=== PATIENT | female | born 1955 | race Two or more races ===

== ENCOUNTER 2021-06-14 10:02 | Outpatient (CLI) | payer MEDICARE, OTHER ==
[2021-06-14 11:53] LABS: BASOPHILS % (AUTO) 0.6 % (0.0-2.0); EOSINOPHILS % (AUTO) 0.7 % (0.0-6.0); HEMATOCRIT 37 % (33-45); HEMOGLOBIN 12.6 g/dL (11.5-14.8); LYMPHOCYTES # (AUTO) 2.4 K/uL (0.8-4.8); LYMPHOCYTES % (AUTO) 31.7 % (20.0-44.0); MEAN CORPUSCULAR HGB CONC 34 g/dl (31.0-36.0); MEAN CORPUSCULAR VOLUME 90 fL (82-100); MONOCYTES # (AUTO) 0.4 K/uL (0.1-1.30); MONOCYTES % (AUTO) 5.7 % (2.0-12.0); NEUTROPHILS # (AUTO) 4.7 K/uL (1.8-8.9); NEUTROPHILS % (AUTO) 61.3 % (43.0-81.0); PLATELET COUNT (AUTO) 302 K/uL (150-450); RED BLOOD CELL COUNT(AUTO) 4.11 MIL/uL (4.0-5.2); WHITE BLOOD COUNT (AUTO) 7.6 K/uL (4.3-11.0)
[2021-06-14 11:55] LABS: BILIRUBIN,URINE NEGATIVE (NEGATIVE); COLOR,URINE YELLOW (YELLOW); LEUKOCYTE ESTERASE ,URINE NEGATIVE (NEGATIVE); NITRITE, URINE NEGATIVE (NEGATIVE); PROTEIN,URINE NEGATIVE (NEGATIVE); UGLUCOSE NEGATIVE (NEGATIVE); UROBILINOGEN,URINE 0.2 EU/dL (0.2)
[2021-06-14 12:06] LABS: ALBUMIN 3.8 g/dL (3.4-5.0); BILIRUBIN,TOTAL 0.4 mg/dL (0.2-1.0); CALCIUM, SERUM 9.7 mg/dL (8.5-10.1); CREATININE 0.9 mg/dL (0.6-1.3); POTASSIUM 4.2 mmol/L (3.5-5.1); TOTAL PROTEIN, SERUM 7.7 g/dL (6.4-8.2)
[2021-06-14 12:23] LABS: THYROID STIMULATING HORMONE 1.605 uIU/mL (0.358-3.74)
== END 2021-06-14 23:59 | disposition home or self-care (01) ==
LOC: MSC 10:02
PROVIDERS: ATTEND Internal Medicine
DX: I10 Essential (primary) hypertension (principal); E11.9 Type 2 diabetes mellitus without complications; Z79.84 Long term (current) use of oral hypoglycemic drugs; I82.409 Acute embolism and thrombosis of unspecified deep veins of unspecified lower extremity; Z79.01 Long term (current) use of anticoagulants; E78.5 Hyperlipidemia, unspecified
CPT/HCPCS: 36415; 80053; 80061; 81003; 82043; 82570; 82728; 83540; 84439; 84443; 85025; G0463

== ENCOUNTER 2021-07-14 09:25 | Outpatient (CLI) | payer MEDICARE ==
[2021-07-14 10:13] LABS: BASOPHILS % (AUTO) 0.5 % (0.0-2.0); EOSINOPHILS % (AUTO) 0.8 % (0.0-6.0); HEMATOCRIT 39 % (33-45); HEMOGLOBIN 13.3 g/dL (11.5-14.8); LYMPHOCYTES # (AUTO) 2.5 K/uL (0.8-4.8); LYMPHOCYTES % (AUTO) 30.8 % (20.0-44.0); MEAN CORPUSCULAR HGB CONC 35 g/dl (31.0-36.0); MEAN CORPUSCULAR VOLUME 89 fL (82-100); MONOCYTES # (AUTO) 0.4 K/uL (0.1-1.30); MONOCYTES % (AUTO) 5.1 % (2.0-12.0); NEUTROPHILS # (AUTO) 5.1 K/uL (1.8-8.9); NEUTROPHILS % (AUTO) 62.8 % (43.0-81.0); PLATELET COUNT (AUTO) 321 K/uL (150-450); RED BLOOD CELL COUNT(AUTO) 4.32 MIL/uL (4.0-5.2); WHITE BLOOD COUNT (AUTO) 8.2 K/uL (4.3-11.0)
[2021-07-14 10:25] LABS: ALBUMIN 4.1 g/dL (3.4-5.0); BILIRUBIN,TOTAL 0.4 mg/dL (0.2-1.0); CALCIUM, SERUM 9.6 mg/dL (8.5-10.1); CREATININE 0.9 mg/dL (0.6-1.3); POTASSIUM 3.7 mmol/L (3.5-5.1); TOTAL PROTEIN, SERUM 8.4 g/dL (6.4-8.2)
[2021-07-14 10:38] LABS: BILIRUBIN,URINE NEGATIVE (NEGATIVE); LEUKOCYTE ESTERASE ,URINE TRACE (NEGATIVE); NITRITE, URINE NEGATIVE (NEGATIVE); PROTEIN,URINE NEGATIVE (NEGATIVE); UGLUCOSE NEGATIVE (NEGATIVE); UROBILINOGEN,URINE 0.2 EU/dL (0.2)
[2021-07-14 10:47] LABS: COLOR,URINE LIGHT YELLOW (YELLOW)
[2021-07-14 10:51] LABS: BACTERIA,URINE Rare /HPF (None Seen); RBC,URINE 0-2 /HPF (0-2); SQUAMOUS EPITHELIAL CELL,UR Rare /HPF (None Seen); WBC,URINE 0-2 /HPF (0-3)
== END 2021-07-14 23:59 | disposition home or self-care (01) ==
LOC: LAB 09:25
PROVIDERS: ATTEND Internal Medicine
DX: Z01.818 Encounter for other preprocedural examination (principal); M17.12 Unilateral primary osteoarthritis, left knee; Z20.822 Contact with and (suspected) exposure to COVID-19
CPT/HCPCS: 36415; 71045; 80053; 81001; 85025; 85610; 85730; 93005; C9803; U0003

== ENCOUNTER 2021-07-18 10:30 | Outpatient (CLI) | payer MEDICARE | END 2021-07-18 23:59 | disposition home or self-care (01) | LOC: MSC 10:30 | PROVIDERS: ATTEND Internal Medicine | DX: Z01.818 Encounter for other preprocedural examination (principal); M17.10 Unilateral primary osteoarthritis, unspecified knee; I10 Essential (primary) hypertension; E11.9 Type 2 diabetes mellitus without complications; Z79.84 Long term (current) use of oral hypoglycemic drugs; I82.409 Acute embolism and thrombosis of unspecified deep veins of unspecified lower extremity; Z79.01 Long term (current) use of anticoagulants; E78.5 Hyperlipidemia, unspecified; Z79.899 Other long term (current) drug therapy ==

== ENCOUNTER 2021-07-21 05:28 | Inpatient (IN) | payer MEDICARE, OTHER ==
[~2021-07-21] VITALS: Ht 152.4 cm; Wt 74.4 kg
--- NOTE | 2021-07-21 06:00 | NUR ---
MS RN NOTE PATIENT ARRIVED ON UNIT FOR LEFT TOTAL KNEE ARTHROPLASTY, PT ALERT/ORIENTED X 4, PT IS ETHIOPIAN SPEAKING ONLY. PT STABLE ON RA, NO S/S OF DISTRESS OR SOB NOTED, BREATHING EVEN AND UNLABORED. PATIENT STATES SHE IS FEELING VERY ANXIOUS, BP: 210/110, HR: 92, SPO2: 98%. PATIENT STATES SHE WAS TOLD TO TAKE LOSARTAN 50 MG PO MEDICATION THIS MORNING, OTHER THAN THAT HAS BEEN NPO SINCE 10 PM LAST NIGHT. MRSA SWAB DONE. IV PLACED IN LEFT AC #20G. PATIENT BELONGINGS CHARTED AND LEFT IN ROOM. PER PATIENT, DAUGHTER AND NIECE WILL BE IN WAITING ROOM. CONSENTS SIGNED AND SURGICAL CHECKLIST COMPLETED. WILL CONTINUE TO MONITOR PATIENT
--- NOTE | 2021-07-21 06:00 | NUR ---
MS RN NOTE PATIENT ARRIVED ON UNIT FOR LEFT TOTAL KNEE ARTHROPLASTY, PT ALERT/ORIENTED X 4, PT IS NIGERIEN SPEAKING ONLY. PT STABLE ON RA, NO S/S OF DISTRESS OR SOB NOTED, BREATHING EVEN AND UNLABORED. PATIENT STATES SHE IS FEELING VERY ANXIOUS, BP: 210/110, HR: 92, SPO2: 98%. PATIENT STATES SHE WAS TOLD TO TAKE LOSARTAN 50 MG PO MEDICATION THIS MORNING, OTHER THAN THAT HAS BEEN NPO SINCE 10 PM LAST NIGHT. MRSA SWAB DONE. IV PLACED IN LEFT AC #20G. PATIENT BELONGINGS CHARTED AND LEFT IN ROOM. PER PATIENT, DAUGHTER AND NIECE WILL BE IN WAITING ROOM. CONSENTS SIGNED AND SURGICAL CHECKLIST COMPLETED. WILL CONTINUE TO MONITOR PATIENT
--- NOTE | 2021-07-21 06:40 | NUR ---
MS RN NOTE PATIENT TAKEN DOWN BY OR NURSES IN STABLE CONDITION
--- NOTE | 2021-07-21 06:40 | NUR ---
MS RN NOTE PATIENT TAKEN DOWN BY OR NURSES IN STABLE CONDITION
[2021-07-21] MEDS ORDERED: FENTANYL PF 100MCG/2ML AMPUL ONE (06:41)
[2021-07-21] MEDS ORDERED: ROCURONIUM BROMIDE 50 MG/5 ML ONE (06:41)
[2021-07-21] MEDS ORDERED: HYDROMORPHONE INJ 2 MG/ML DISP.SYRIN ONE ×2 (06:41→09:14)
[2021-07-21] MEDS ORDERED: TRANEXAMIC ACID 3,000 MG in SODIUM CHLORIDE IRRIG SOLUTION 70 ML IR ONE (07:30)
[2021-07-21] MEDS ORDERED: LABETALOL HCL IV 100MG VIAL ONE (08:05)
[2021-07-21] MEDS ORDERED: BUPIVACAINE 0.5 % PF 150 MG/30 ML VIAL ONE (08:36)
[2021-07-21] MEDS ORDERED: SENNOSIDES 8.6 MG TABLET PO PRN (10:00)
[2021-07-21] MEDS ORDERED: BISACODYL SUPP (10 MG) 10 MG/SUPP.RECT SUPP.RECT RC PRN ×2 (10:00→11:00)
[2021-07-21] MEDS ORDERED: DOCUSATE SODIUM 250 MG CAPSULE PO PRN (10:00)
[2021-07-21] MEDS ORDERED: ONDANSETRON HCL/PF 4 MG/2 ML VIAL IVP PRN ×2 (10:00→12:30)
[2021-07-21] MEDS ORDERED: ZOLPIDEM TARTRATE 5 MG TABLET PO PRN ×2 (10:00→12:30)
[2021-07-21] MEDS ORDERED: HYDROCODONE/APAP 5/325MG TABLET PO PRN (10:00)
[2021-07-21 10:40] VITALS: BP 115/65
[2021-07-21] MEDS ORDERED: diphenhydrAMINE HCL 25 MG CAPSULE PO PRN (11:00)
[2021-07-21] MEDS ORDERED: oxyCODONE IR immediate release 5 MG PO PRN (11:00)
[2021-07-21] MEDS ORDERED: MENTHOL/CETYLPYRD (CEPACOL) 1 LOZ LOZENGE MM PRN (11:00)
[2021-07-21] MEDS ORDERED: CLONIDINE HCL 0.1 MG TABLET PO PRN (11:00)
[2021-07-21] MEDS ORDERED: MAG HYDROX/AL HYDROX/SIMETH 30 ML UDC PO PRN ×2 (11:00→12:30)
[2021-07-21] MEDS ORDERED: HYDROMORPHONE 1 MG/1 ML DISP.SYRIN IV PRN (11:00)
[2021-07-21] MEDS ORDERED: NALOXONE HCL 0.4 MG/ML AMPUL IV PRN (11:00)
--- NOTE | 2021-07-21 11:30 | NUR ---
HOSPICE PLAN ADMINISTRATOR NOTE PT IN BED RESTING COMFORTABLY. SATS IN LOW 90'S, 2L NC PLACED. SATS BACK >95%. IRAQI ONLY. A/O X4. ON BEDREST. L LEG TO BE IMMOBILIZED. L KNEE INCISION PRESENT, WOUND TX TO BE DONE BY MD. LABS AND ORDERS REVIEWED. NOTIFIED GUY ROUSSEAU OF ADMISSION. NEW ORDERS PLACED. WILL CONTINUE TO MONITOR.
--- NOTE | 2021-07-21 11:30 | NUR ---
PROFILE SAW SETUP OPERATOR NOTE PT IN BED RESTING COMFORTABLY. SATS IN LOW 90'S, 2L NC PLACED. SATS BACK >95%. CZECH ONLY. A/O X4. ON BEDREST. L LEG TO BE IMMOBILIZED. L KNEE INCISION PRESENT, WOUND TX TO BE DONE BY MD. LABS AND ORDERS REVIEWED. NOTIFIED GUY ROUSSEAU OF ADMISSION. NEW ORDERS PLACED. WILL CONTINUE TO MONITOR.
[2021-07-21] MEDS ORDERED: DEXTROSE 50%-WATER 50 ML DISP.SYRIN IV PRN ×2 (12:30→14:00)
[2021-07-21] MEDS ORDERED: Z GUARD REMEDY 4 OZ OINT TP PRN (12:30)
[2021-07-21] MEDS ORDERED: MAGNESIUM HYDROXIDE 30 ML UDC PO PRN (12:30)
[2021-07-21] MEDS ORDERED: ACETAMINOPHEN 325 MG TABLET PO PRN (12:30)
[2021-07-21] MEDS ORDERED: BLOOD SUGAR DIAGNOSTIC 1 EACH STRIP IN SCH (13:00)
[2021-07-21 16:00] VITALS: BP 156/81
[2021-07-21] MEDS: ANCEF 1 GM/50 ML D5W IV SCH ×2 (17:28→22:22)
[2021-07-21] MEDS: BLOOD SUGAR DIAGNOSTIC 1 EACH STRIP IN SCH ×2 (17:28→21:15)
[2021-07-21] MEDS: DOCUSATE SODIUM 100 MG CAPSULE PO SCH (17:28)
[2021-07-21] MEDS: INSULIN REGULAR, HUMAN 100 UNIT/ML 3 ML VIAL SQ PRN ×2 (17:29→22:19)
--- NOTE | 2021-07-21 19:43 | NUR ---
RN CLOSING NOTE PT IN BED COMFORTABLY. NO DISTRESS NOTED. NO PAIN NOTED. SAFETY MEASURES IN PLACE. SIDE RAILS RAISED. BED LOWERED. CALL LIGHT WITHIN REACH. WILL CONTINUE TO MONITOR.
[2021-07-21 20:38] VITALS: BP 160/77
[2021-07-21] MEDS: FAMOTIDINE (20 MG) 20 MG TABLET PO SCH (21:15)
[2021-07-22] MEDS: IV D5/0.45 NACL 1,000 ML IV PRN ×2 (05:43→22:45)
[2021-07-22] MEDS: oxyCODONE IR immediate release 5 MG PO PRN ×2 (06:05→21:52)
[2021-07-22] MEDS ORDERED: RIVA10TA PO (06:21)
[2021-07-22] MEDS ORDERED: AMLO-213 PO (06:21)
[2021-07-22] MEDS ORDERED: LOSA100T31 PO (06:21)
[2021-07-22] MEDS ORDERED: METF-442 PO (06:21)
[2021-07-22] MEDS ORDERED: ATOR40TA PO (06:21)
[2021-07-22] MEDS ORDERED: HYDR25TA4 PO (06:21)
[2021-07-22] MEDS: INSULIN REGULAR, HUMAN 100 UNIT/ML 3 ML VIAL SQ PRN ×4 (06:31→22:15)
[2021-07-22] MEDS: BLOOD SUGAR DIAGNOSTIC 1 EACH STRIP IN SCH ×4 (06:35→22:11)
--- NOTE | 2021-07-22 06:42 | NUR ---
MS RN NOTES AWAKE & RESPONSIVE. NOT IN ANY DISTRESS. NO SOB NOTED. DENIES ANY PAIN OR DISCOMFORT AT THIS TIME. WITH IVF INFUSING WELL. AM CARE DONE. MONITORED ACCORDINGLY. CALL LIGHT WITHIN REACH. BED IN LOWEST POSITION. SR UP X 3 WITH BED ALARM ON FOR SAFETY. WILL ENDORSE TO NEXT SHIFT.
--- NOTE | 2021-07-22 07:35 | NUR ---
MS RN OPENING NOTES: RECEIVED Pt AWAKE IN BED. A/Ox4, BREATHING ON ROOM AIR AND TOLERATING WELL/ NO COMPLAINTS OF PAIN MADE AT THIS TIME, NO SIGNS OF DISTRESS NOTICED. SAFETY PRECAUTIONS IN PLACE; BED IS LOCKED AND IN LOWEST POSITION, SIDE RAILS UP x3, CALL LIGHT AND BED SIDE TABLE ARE WITHIN REACH. WILL CONTINUE TO MONITOR THROUGHOUT THE SHIFT.
[2021-07-22 07:40] LABS: BASOPHILS % (AUTO) 0.2 % (0.0-2.0); HEMATOCRIT 28 % (33-45); HEMOGLOBIN 9.7 g/dL (11.5-14.8); LYMPHOCYTES # (AUTO) 1.7 K/uL (0.8-4.8); LYMPHOCYTES % (AUTO) 16.3 % (20.0-44.0); MEAN CORPUSCULAR HGB CONC 35 g/dl (31.0-36.0); MEAN CORPUSCULAR VOLUME 89 fL (82-100); MONOCYTES # (AUTO) 0.9 K/uL (0.1-1.30); MONOCYTES % (AUTO) 8.3 % (2.0-12.0); NEUTROPHILS # (AUTO) 7.9 K/uL (1.8-8.9); NEUTROPHILS % (AUTO) 75.2 % (43.0-81.0); PLATELET COUNT (AUTO) 242 K/uL (150-450); RED BLOOD CELL COUNT(AUTO) 3.16 MIL/uL (4.0-5.2); WHITE BLOOD COUNT (AUTO) 10.5 K/uL (4.3-11.0)
[2021-07-22 08:00] VITALS: BP 175/91
[2021-07-22 08:52] LABS: MAGNESIUM 1.5 mg/dL (1.8-2.4); PHOSPHORUS 3.4 mg/dL (2.5-4.9); POTASSIUM 4.2 mmol/L (3.5-5.1)
[2021-07-22] MEDS ORDERED: RIVAROXABAN 10 MG TABLET PO SCH ×2 (09:00→17:00)
[2021-07-22] MEDS: FAMOTIDINE (20 MG) 20 MG TABLET PO SCH ×2 (09:16→21:03)
[2021-07-22] MEDS: DOCUSATE SODIUM 100 MG CAPSULE PO SCH ×2 (09:19→16:12)
[2021-07-22 09:40] LABS: CALCIUM, SERUM 8.5 mg/dL (8.5-10.1)
[2021-07-22] MEDS: ACETAMINOPHEN 325 MG TABLET PO PRN (10:51)
[2021-07-22] MEDS: Magnesium 1GM/D5W 100ML PREMIX 100 ML IV SCH ×2 (15:52→17:26)
[2021-07-22 16:00] VITALS: BP 164/70
[2021-07-22] MEDS: METFORMIN 500 MG TABLET PO SCH (16:11)
[2021-07-22] MEDS: RIVAROXABAN 10 MG TABLET PO SCH (16:13)
--- NOTE | 2021-07-22 19:21 | NUR ---
MS RN CLOSING NOTES Pt IS AWAKE IN BED, A/OX4. Pt IS POLISH SPEAKING AND FAMILY IS AT BEDSIDE. Pt IS ON ROOM AIR AND TOLERATING WELL, BREATHING IS EVEN AND UNLABORED. NO COMPLAINTS OF PAIN AT THIS TIME. SAFETY MEASURES ARE IN PLACE, BED IS LOCKED AND IN LOWEST POSITION, SIDE RAILS UP x2, BEDSIDE TABLE AND CALL LIGHT WITHIN REACH. WILL ENDORSE TO ONCOMING SHIFT
--- NOTE | 2021-07-22 19:21 | NUR ---
MS RN CLOSING NOTES Pt IS AWAKE IN BED, A/OX4. Pt IS NIGERIAN SPEAKING AND FAMILY IS AT BEDSIDE. Pt IS ON ROOM AIR AND TOLERATING WELL, BREATHING IS EVEN AND UNLABORED. NO COMPLAINTS OF PAIN AT THIS TIME. SAFETY MEASURES ARE IN PLACE, BED IS LOCKED AND IN LOWEST POSITION, SIDE RAILS UP x2, BEDSIDE TABLE AND CALL LIGHT WITHIN REACH. WILL ENDORSE TO ONCOMING SHIFT
--- NOTE | 2021-07-22 19:35 | NUR ---
RN opening notes Pt is laying in bed comfortably accompanied by Pt's family. Pt is alert and orientedX4. Pt speaks Ecuadorean and able to make needs known. Respiration on 2 L NC. No SOB. No S/S of distress noted. IV site at LAc#20 is clean, intact and infusing well D5 1/2 NS @ 125 ml/hr. L leg dressing is intact, clean and dry. Safety precautions is maintained. Bed at low position, brakes locked, side rails upX3 and call light is within reach.Will continue to monitor.
[2021-07-22 20:00] VITALS: BP 169/71
[2021-07-22] MEDS: ATORVASTATIN 40 MG TABLET PO SCH (21:09)
--- NOTE | 2021-07-22 21:55 | NUR ---
RN notes Pt is complaining of pain on L knee and requesting pain meds. administered oxycodone 5mg/2tabs/po/prn as ordered for pain. Safety precautions is maintained. Will continue to monitor.
[2021-07-22 22:30] VITALS: BP 153/84
--- NOTE | 2021-07-23 06:30 | NUR ---
RN closing notes Pt is resting in bed comfortable. Pt is alert and orientedX4. Pt speaks Monegasque and able to make needs known. Respiration on 2 L NC. No SOB. No S/S of distress noted. IV site at LAc#20 is clean, intact and infusing well D5 1/2 NS @ 125 ml/hr. L leg dressing is intact, clean and dry. Routine meds were given as ordered. Kept Pt clean, dry and comfortable. Safety precautions is maintained. Bed at low position, brakes locked, side rails upX3 and call light is within reach. Will endorse to am nurse for CURTIS.
[2021-07-23] MEDS: BLOOD SUGAR DIAGNOSTIC 1 EACH STRIP IN SCH ×4 (06:31→22:44)
[2021-07-23] MEDS: INSULIN REGULAR, HUMAN 100 UNIT/ML 3 ML VIAL SQ PRN ×3 (06:35→22:50)
--- NOTE | 2021-07-23 07:22 | NUR ---
MS RN OPENING NOTES: RECEIVED Pt AWAKE IN BED. A/Ox4, BREATHING ON 2 L OF NC AND TOLERATING WELL/ NO COMPLAINTS OF PAIN MADE AT THIS TIME, NO SIGNS OF DISTRESS NOTICED. IV ACCESS ON L AC PATENT AND INTACT. SAFETY PRECAUTIONS IN PLACE; BED IS LOCKED AND IN LOWEST POSITION, SIDE RAILS UP x3, CALL LIGHT AND BED SIDE TABLE ARE WITHIN REACH. WILL CONTINUE TO MONITOR THROUGHOUT THE SHIFT.
[2021-07-23 08:00] VITALS: BP 155/99
[2021-07-23] MEDS: LOSARTAN POTASSIUM 50 MG TABLET PO SCH (08:50)
[2021-07-23] MEDS: METFORMIN 500 MG TABLET PO SCH ×2 (08:50→16:12)
[2021-07-23] MEDS: AMLODIPINE BESYLATE 10 MG TABLET PO SCH (08:51)
[2021-07-23] MEDS: DOCUSATE SODIUM 100 MG CAPSULE PO SCH ×2 (08:51→16:12)
[2021-07-23] MEDS: FAMOTIDINE (20 MG) 20 MG TABLET PO SCH ×2 (08:51→20:50)
[2021-07-23] MEDS: HYDROCHLOROTHIAZIDE 25 MG TABLET PO SCH (08:51)
[2021-07-23] MEDS ORDERED: RIVAROXABAN 10 MG TABLET PO SCH (09:00)
[2021-07-23 12:19] LABS: BASOPHILS % (AUTO) 0.4 % (0.0-2.0); EOSINOPHILS % (AUTO) 0.4 % (0.0-6.0); HEMATOCRIT 29 % (33-45); HEMOGLOBIN 9.9 g/dL (11.5-14.8); LYMPHOCYTES # (AUTO) 1.3 K/uL (0.8-4.8); LYMPHOCYTES % (AUTO) 15.7 % (20.0-44.0); MEAN CORPUSCULAR HGB CONC 35 g/dl (31.0-36.0); MEAN CORPUSCULAR VOLUME 89 fL (82-100); MONOCYTES # (AUTO) 0.7 K/uL (0.1-1.30); MONOCYTES % (AUTO) 8.4 % (2.0-12.0); NEUTROPHILS # (AUTO) 6.3 K/uL (1.8-8.9); NEUTROPHILS % (AUTO) 75.1 % (43.0-81.0); PLATELET COUNT (AUTO) 231 K/uL (150-450); WHITE BLOOD COUNT (AUTO) 8.4 K/uL (4.3-11.0)
[2021-07-23] MEDS ORDERED: MAGNESIUM HYDROXIDE 30 ML UDC PO ONE (16:00)
[2021-07-23] MEDS: RIVAROXABAN 10 MG TABLET PO SCH (16:13)
--- NOTE | 2021-07-23 18:39 | NUR ---
MS RN CLOSING NOTES Pt IS AWAKE IN BED, A/OX4. Pt IS SWAZI SPEAKING AND FAMILY IS AT BEDSIDE. Pt IS ON ROOM AIR AND TOLERATING WELL, BREATHING IS EVEN AND UNLABORED. NO COMPLAINTS OF PAIN AT THIS TIME. Pt IS ABLE TO EXPRESS ALL HER NEEDS, ALL NEEDS MET FOR TODAY'S SHIFT. SAFETY MEASURES ARE IN PLACE, BED IS LOCKED AND IN LOWEST POSITION, SIDE RAILS UP x2, BEDSIDE TABLE AND CALL LIGHT WITHIN REACH. WILL ENDORSE TO ONCOMING SHIFT
--- NOTE | 2021-07-23 18:39 | NUR ---
MS RN CLOSING NOTES Pt IS AWAKE IN BED, A/OX4. Pt IS ETHIOPIAN SPEAKING AND FAMILY IS AT BEDSIDE. Pt IS ON ROOM AIR AND TOLERATING WELL, BREATHING IS EVEN AND UNLABORED. NO COMPLAINTS OF PAIN AT THIS TIME. Pt IS ABLE TO EXPRESS ALL HER NEEDS, ALL NEEDS MET FOR TODAY'S SHIFT. SAFETY MEASURES ARE IN PLACE, BED IS LOCKED AND IN LOWEST POSITION, SIDE RAILS UP x2, BEDSIDE TABLE AND CALL LIGHT WITHIN REACH. WILL ENDORSE TO ONCOMING SHIFT
--- NOTE | 2021-07-23 19:35 | NUR ---
MS RN OPENING NOTES RECEIVED PATIENT LAYING AWAKE IN BED. PATIENT IS MOHAWK SPEAKING. A/OX4. PATIENT WITH REGULAR AND UNLABORED BREATHING ON ROOM AIR TOLERATED WELL. NO SIGNS AND SYMPTOMS OF DISTRESS NOTED AT THIS TIME. NO COMPLAINS OF PAIN OR DISCOMFORT AT THIS TIME. IV ACCESS LAC G #20 SL. IV ACCESS PATENT AND INTACT. SAFETY PRECAUTIONS ENFORCED WITH BED LOCKED AND AT LOWEST POSITION. SIDERAILS UP X2. CALL LIGHT WITHIN REACH AT ALL TIMES. WILL CONTINUE TO MONITOR PATIENT.
--- NOTE | 2021-07-23 19:35 | NUR ---
MS RN OPENING NOTES RECEIVED PATIENT LAYING AWAKE IN BED. PATIENT IS MALTESE SPEAKING. A/OX4. PATIENT WITH REGULAR AND UNLABORED BREATHING ON ROOM AIR TOLERATED WELL. NO SIGNS AND SYMPTOMS OF DISTRESS NOTED AT THIS TIME. NO COMPLAINS OF PAIN OR DISCOMFORT AT THIS TIME. IV ACCESS LAC G #20 SL. IV ACCESS PATENT AND INTACT. SAFETY PRECAUTIONS ENFORCED WITH BED LOCKED AND AT LOWEST POSITION. SIDERAILS UP X2. CALL LIGHT WITHIN REACH AT ALL TIMES. WILL CONTINUE TO MONITOR PATIENT.
[2021-07-23 20:00] VITALS: BP 151/72
[2021-07-23] MEDS: ACETAMINOPHEN 325 MG TABLET PO PRN (20:50)
--- NOTE | 2021-07-23 20:51 | NUR ---
MS RN NOTES PATIENT COMPLAINED OF PAIN. ADMINISTERED TYLENOL ORDERED BY HOSPITALIST.
--- NOTE | 2021-07-23 20:51 | NUR ---
MS RN NOTES PATIENT COMPLAINED OF PAIN. ADMINISTERED TYLENOL ORDERED BY HOSPITALIST.
[2021-07-23] MEDS: ATORVASTATIN 40 MG TABLET PO SCH (22:31)
[2021-07-24] MEDS: INSULIN REGULAR, HUMAN 100 UNIT/ML 3 ML VIAL SQ PRN ×4 (06:35→22:22)
[2021-07-24] MEDS: BLOOD SUGAR DIAGNOSTIC 1 EACH STRIP IN SCH ×4 (06:36→22:16)
--- NOTE | 2021-07-24 06:51 | NUR ---
MS RN CLOSING NOTES PATIENT STILL LAYING AWAKE IN BED. PATIENT IS KOSOVAN SPEAKING. A/OX4. PATIENT WITH REGULAR AND UNLABORED BREATHING ON ROOM AIR TOLERATED WELL. NO SIGNS AND SYMPTOMS OF DISTRESS NOTED AT THIS TIME. NO COMPLAINS OF PAIN OR DISCOMFORT AT THIS TIME. IV ACCESS LAC G #20 SL. IV ACCESS PATENT AND INTACT. SAFETY PRECAUTIONS ENFORCED WITH BED LOCKED AND AT LOWEST POSITION. SIDERAILS UP X2. CALL LIGHT WITHIN REACH AT ALL TIMES. WILL ENDORSE CONTINUITY OF CARE TO DAY SHIFT NURSE.
--- NOTE | 2021-07-24 06:51 | NUR ---
MS RN CLOSING NOTES PATIENT STILL LAYING AWAKE IN BED. PATIENT IS ICELANDIC SPEAKING. A/OX4. PATIENT WITH REGULAR AND UNLABORED BREATHING ON ROOM AIR TOLERATED WELL. NO SIGNS AND SYMPTOMS OF DISTRESS NOTED AT THIS TIME. NO COMPLAINS OF PAIN OR DISCOMFORT AT THIS TIME. IV ACCESS LAC G #20 SL. IV ACCESS PATENT AND INTACT. SAFETY PRECAUTIONS ENFORCED WITH BED LOCKED AND AT LOWEST POSITION. SIDERAILS UP X2. CALL LIGHT WITHIN REACH AT ALL TIMES. WILL ENDORSE CONTINUITY OF CARE TO DAY SHIFT NURSE.
--- NOTE | 2021-07-24 07:13 | NUR ---
MS RN OPENING NOTES RECEIVED PATIENT AWAKE IN BED. PATIENT IS GUYANESE SPEAKING. A/OX4. IN N ACUTE DISTRESS NOTED. ON ROOM AIR TOLERATED WELL. NO COMPLAINTS OF PAIN OR DISCOMFORT AT THIS TIME. IV ACCESS LAC G #20 SL. IV ACCESS PATENT AND INTACT. SAFETY PRECAUTIONS ENFORCED WITH BED LOCKED AND AT LOWEST POSITION. SIDE RAILS UP X2. CALL LIGHT WITHIN REACH AT ALL TIMES. WILL CONTINUE TO MONITOR PATIENT ACCORDINGLY.
--- NOTE | 2021-07-24 07:13 | NUR ---
MS RN OPENING NOTES RECEIVED PATIENT AWAKE IN BED. PATIENT IS CITIZEN OF [place] SPEAKING. A/OX4. IN N ACUTE DISTRESS NOTED. ON ROOM AIR TOLERATED WELL. NO COMPLAINTS OF PAIN OR DISCOMFORT AT THIS TIME. IV ACCESS LAC G #20 SL. IV ACCESS PATENT AND INTACT. SAFETY PRECAUTIONS ENFORCED WITH BED LOCKED AND AT LOWEST POSITION. SIDE RAILS UP X2. CALL LIGHT WITHIN REACH AT ALL TIMES. WILL CONTINUE TO MONITOR PATIENT ACCORDINGLY.
[2021-07-24 08:00] VITALS: BP 137/70
[2021-07-24] MEDS: DOCUSATE SODIUM 100 MG CAPSULE PO SCH ×2 (08:40→16:26)
[2021-07-24] MEDS: FAMOTIDINE (20 MG) 20 MG TABLET PO SCH ×2 (08:41→21:59)
[2021-07-24] MEDS: METFORMIN 500 MG TABLET PO SCH ×2 (08:41→16:26)
[2021-07-24] MEDS: HYDROCHLOROTHIAZIDE 25 MG TABLET PO SCH (08:41)
[2021-07-24] MEDS: AMLODIPINE BESYLATE 10 MG TABLET PO SCH (08:41)
[2021-07-24] MEDS: LOSARTAN POTASSIUM 50 MG TABLET PO SCH (08:51)
[2021-07-24] MEDS ORDERED: BISACODYL SUPP (10 MG) 10 MG/SUPP.RECT SUPP.RECT RC ONE (10:02)
[2021-07-24] MEDS ORDERED: MAGNESIUM CITRATE 296 ML BOTTLE PO ONE (10:30)
[2021-07-24 16:00] VITALS: BP 112/58
[2021-07-24] MEDS: RIVAROXABAN 10 MG TABLET PO SCH (16:25)
--- NOTE | 2021-07-24 18:33 | NUR ---
MS RN CLOSING NOTES PATIENT AWAKE IN BED. PATIENT IS [place] SPEAKING. A/OX4. IN N ACUTE DISTRESS NOTED. ON ROOM AIR TOLERATED WELL. NO COMPLAINTS OF PAIN OR DISCOMFORT AT THIS TIME. IV ACCESS LAC G #20 SL. IV ACCESS PATENT AND INTACT. SAFETY PRECAUTIONS ENFORCED WITH BED LOCKED AND AT LOWEST POSITION. SIDE RAILS UP X2. CALL LIGHT WITHIN REACH AT ALL TIMES. ALL NEEDS ATTENDED AND MET. DUE MEDS GIVEN ORDERED. WILL ENDORSE TO ONCOMING SHIFT FOR CURTIS.
--- NOTE | 2021-07-24 18:33 | NUR ---
MS RN CLOSING NOTES PATIENT AWAKE IN BED. PATIENT IS GABONESE SPEAKING. A/OX4. IN N ACUTE DISTRESS NOTED. ON ROOM AIR TOLERATED WELL. NO COMPLAINTS OF PAIN OR DISCOMFORT AT THIS TIME. IV ACCESS LAC G #20 SL. IV ACCESS PATENT AND INTACT. SAFETY PRECAUTIONS ENFORCED WITH BED LOCKED AND AT LOWEST POSITION. SIDE RAILS UP X2. CALL LIGHT WITHIN REACH AT ALL TIMES. ALL NEEDS ATTENDED AND MET. DUE MEDS GIVEN ORDERED. WILL ENDORSE TO ONCOMING SHIFT FOR CURTIS.
--- NOTE | 2021-07-24 19:15 | NUR ---
MS RN OPENING NOTES RECEIVED PATIENT LAYING AWAKE IN BED. PATIENT IS ITALIAN SPEAKING. A/OX4. PATIENT WITH REGULAR AND UNLABORED BREATHING ON ROOM AIR TOLERATED WELL. NO SIGNS AND SYMPTOMS OF DISTRESS NOTED AT THIS TIME. NO COMPLAINS OF PAIN OR DISCOMFORT AT THIS TIME. IV ACCESS LAC G #20 SL. IV ACCESS PATENT AND INTACT. SAFETY PRECAUTIONS ENFORCED WITH BED LOCKED AND AT LOWEST POSITION. SIDERAILS UP X2. CALL LIGHT WITHIN REACH AT ALL TIMES. WILL CONTINUE TO MONITOR PATIENT.
--- NOTE | 2021-07-24 19:15 | NUR ---
MS RN OPENING NOTES RECEIVED PATIENT LAYING AWAKE IN BED. PATIENT IS ESTONIAN SPEAKING. A/OX4. PATIENT WITH REGULAR AND UNLABORED BREATHING ON ROOM AIR TOLERATED WELL. NO SIGNS AND SYMPTOMS OF DISTRESS NOTED AT THIS TIME. NO COMPLAINS OF PAIN OR DISCOMFORT AT THIS TIME. IV ACCESS LAC G #20 SL. IV ACCESS PATENT AND INTACT. SAFETY PRECAUTIONS ENFORCED WITH BED LOCKED AND AT LOWEST POSITION. SIDERAILS UP X2. CALL LIGHT WITHIN REACH AT ALL TIMES. WILL CONTINUE TO MONITOR PATIENT.
[2021-07-24] MEDS: ACETAMINOPHEN 325 MG TABLET PO PRN (19:38)
--- NOTE | 2021-07-24 19:39 | NUR ---
MS RN NOTES PATIENT COMPLAINED OF PAIN. ADMINISTERED TYLENOL ORDERED BY HOSPITALIST. WILL CONTINUE TO MONITOR PATIENT.
--- NOTE | 2021-07-24 19:39 | NUR ---
MS RN NOTES PATIENT COMPLAINED OF PAIN. ADMINISTERED TYLENOL ORDERED BY HOSPITALIST. WILL CONTINUE TO MONITOR PATIENT.
[2021-07-24 20:00] VITALS: BP 120/58
[2021-07-24] MEDS: ATORVASTATIN 40 MG TABLET PO SCH (21:59)
[2021-07-25] MEDS: BLOOD SUGAR DIAGNOSTIC 1 EACH STRIP IN SCH ×4 (06:31→22:36)
[2021-07-25] MEDS: INSULIN REGULAR, HUMAN 100 UNIT/ML 3 ML VIAL SQ PRN ×4 (06:34→22:39)
--- NOTE | 2021-07-25 06:50 | NUR ---
MS RN CLOSING NOTES PATIENT STILL LAYING AWAKE IN BED. PATIENT IS UZBE[place] SPEAKING. A/OX4. PATIENT WITH REGULAR AND UNLABORED BREATHING ON ROOM AIR TOLERATED WELL. NO SIGNS AND SYMPTOMS OF DISTRESS NOTED AT THIS TIME. NO COMPLAINS OF PAIN OR DISCOMFORT AT THIS TIME. IV ACCESS LAC G #20 SL. IV ACCESS PATENT AND INTACT. SAFETY PRECAUTIONS ENFORCED WITH BED LOCKED AND AT LOWEST POSITION. SIDERAILS UP X2. CALL LIGHT WITHIN REACH AT ALL TIMES. WILL ENDORSE CONTINUITY OF CARE TO DAY SHIFT NURSE.
--- NOTE | 2021-07-25 06:50 | NUR ---
MS RN CLOSING NOTES PATIENT STILL LAYING AWAKE IN BED. PATIENT IS FIJIAN SPEAKING. A/OX4. PATIENT WITH REGULAR AND UNLABORED BREATHING ON ROOM AIR TOLERATED WELL. NO SIGNS AND SYMPTOMS OF DISTRESS NOTED AT THIS TIME. NO COMPLAINS OF PAIN OR DISCOMFORT AT THIS TIME. IV ACCESS LAC G #20 SL. IV ACCESS PATENT AND INTACT. SAFETY PRECAUTIONS ENFORCED WITH BED LOCKED AND AT LOWEST POSITION. SIDERAILS UP X2. CALL LIGHT WITHIN REACH AT ALL TIMES. WILL ENDORSE CONTINUITY OF CARE TO DAY SHIFT NURSE.
--- NOTE | 2021-07-25 07:18 | NUR ---
MS RN OPENING NOTES RECEIVED PATIENT ON BED AWAKE, A/O X4, VERBALLY RESPONSIVE. NO SIGNS OF ACUTE DISTRESS NOTED. ON ROOM AIR TOLERATING WELL, BREATHING EVEN AND UNLABORED. NO C/O PAIN OR DISCOMFORT AT THIS TIME. IV ACCESS ON LAC #20G INTACT AND PATENT. SAFETY MEASURES IN PLACE. BED LOCKED AND IN LOWEST POSITION, SR UP X2, CALL LIGHT PLACED WITHIN EASY REACH. WILL CONTINUE TO MONITOR.
[2021-07-25 08:00] VITALS: BP 128/60
[2021-07-25] MEDS: FAMOTIDINE (20 MG) 20 MG TABLET PO SCH ×2 (08:33→21:21)
[2021-07-25] MEDS: DOCUSATE SODIUM 100 MG CAPSULE PO SCH ×2 (08:33→16:57)
[2021-07-25] MEDS: METFORMIN 500 MG TABLET PO SCH ×2 (08:33→16:57)
[2021-07-25] MEDS: AMLODIPINE BESYLATE 10 MG TABLET PO SCH (08:33)
[2021-07-25] MEDS: HYDROCHLOROTHIAZIDE 25 MG TABLET PO SCH (08:34)
[2021-07-25] MEDS: LOSARTAN POTASSIUM 50 MG TABLET PO SCH (08:34)
[2021-07-25] MEDS ORDERED: DOCUSATE SODIUM 250 MG CAPSULE PO SCH (09:00)
[2021-07-25] MEDS ORDERED: RIVA10TA PO (09:20)
[2021-07-25 11:59] LABS: BASOPHILS % (AUTO) 0.2 % (0.0-2.0); EOSINOPHILS % (AUTO) 0.4 % (0.0-6.0); HEMATOCRIT 27 % (33-45); HEMOGLOBIN 9.3 g/dL (11.5-14.8); LYMPHOCYTES # (AUTO) 0.8 K/uL (0.8-4.8); LYMPHOCYTES % (AUTO) 10.8 % (20.0-44.0); MEAN CORPUSCULAR HGB CONC 34 g/dl (31.0-36.0); MEAN CORPUSCULAR VOLUME 90 fL (82-100); MONOCYTES # (AUTO) 0.7 K/uL (0.1-1.30); MONOCYTES % (AUTO) 9.6 % (2.0-12.0); NEUTROPHILS # (AUTO) 5.7 K/uL (1.8-8.9); PLATELET COUNT (AUTO) 275 K/uL (150-450); RED BLOOD CELL COUNT(AUTO) 3.04 MIL/uL (4.0-5.2); WHITE BLOOD COUNT (AUTO) 7.2 K/uL (4.3-11.0)
[2021-07-25 14:20] LABS: CALCIUM, SERUM 8.9 mg/dL (8.5-10.1); CREATININE 1.3 mg/dL (0.6-1.3); MAGNESIUM 2.2 mg/dL (1.8-2.4); PHOSPHORUS 2.9 mg/dL (2.5-4.9); POTASSIUM 3.8 mmol/L (3.5-5.1)
[2021-07-25 16:00] VITALS: BP 154/67
--- NOTE | 2021-07-25 16:45 | NUR ---
RN NOTES RECEIVED CALL FROM LAB C/O ESTHELA, PATIENT'S RAPID COVID ANTIGEN TEST CAME BACK POSITIVE. DR. BACH, CHARGE NURSE, RN MARKETING TECHNOLOGY SPECIALIST, CASE MANAGEMENT, PATIENT AND PATIENTS DEVI BELTRE ALL MADE AWARE. ISOLATION PRECAUTIONS INITIATED, VITAL SIGNS TAKEN, NOTED WITH TEMP OF 101.6. PATIENT WILL BE TRANSFERRED TO ANOTHER ROOM FOR ISOLATION, WAITING FOR AVAILABLE ROOM. PATIENT REMAINS AWAKE, ALERT, VERBALLY RESPONSIVE, NO COUGH, CO CONGESTION, DENIES ANY BODY PAIN. WILL CONTINUE TO MONITOR.
--- NOTE | 2021-07-25 16:45 | NUR ---
RN NOTES RECEIVED CALL FROM LAB C/O ESTHELA, PATIENT'S RAPID COVID ANTIGEN TEST CAME BACK POSITIVE. DR. BACH, CHARGE NURSE, RN NETWORK ARCHITECT MANAGER, CASE MANAGEMENT, PATIENT AND PATIENTS DEVI BELTRE ALL MADE AWARE. ISOLATION PRECAUTIONS INITIATED, VITAL SIGNS TAKEN, NOTED WITH TEMP OF 101.6. PATIENT WILL BE TRANSFERRED TO ANOTHER ROOM FOR ISOLATION, WAITING FOR AVAILABLE ROOM. PATIENT REMAINS AWAKE, ALERT, VERBALLY RESPONSIVE, NO COUGH, CO CONGESTION, DENIES ANY BODY PAIN. WILL CONTINUE TO MONITOR.
[2021-07-25] MEDS: RIVAROXABAN 10 MG TABLET PO SCH (17:01)
[2021-07-25] MEDS: ACETAMINOPHEN 325 MG TABLET PO PRN (17:16)
--- NOTE | 2021-07-25 18:27 | NUR ---
TRANSFER PT RECEIVED AFTER REPORT RECEIVED FROM [facility]. TRANSFERRED VIA BED WITH ALL MEDICATIONS AND PERSONAL BELONGINGS.
--- NOTE | 2021-07-25 18:27 | NUR ---
TRANSFER PT RECEIVED AFTER REPORT RECEIVED FROM [facility]. TRANSFERRED VIA BED WITH ALL MEDICATIONS AND PERSONAL BELONGINGS.
--- NOTE | 2021-07-25 18:28 | NUR ---
RN NOTES COVID RT-PCR SPECIMEN DROPPED OFF TO LAB.
--- NOTE | 2021-07-25 18:28 | NUR ---
RN NOTES COVID RT-PCR SPECIMEN DROPPED OFF TO LAB.
--- NOTE | 2021-07-25 19:35 | NUR ---
MS RN OPENING NOTES, RECEIVED PATIENT IN BED ALERT, ORIENTED X4 AND VERBALLY RESPONSIVE. ON ROOM AIR. BREATHING EVEN AND UNLABORED. IV ACCESS ON LAC#20G INTACT AND PATENT. NO S/S OF INFILTRATIONS. NO C/O PAIN OR DISCOMFORT. NO ACUTE DISTRESS. ALL SAFETY MEASURES IN PLACE. BED IN LOW POSITION AND LOCKED. BOTH SIDE RAILS UP. PLACE CALL LIGHT WITH IN REACH. WILL CONTINUE TO MONITOR.
[2021-07-25 20:00] VITALS: BP 141/72
[2021-07-25] MEDS: ATORVASTATIN 40 MG TABLET PO SCH (21:21)
--- NOTE | 2021-07-25 22:40 | NUR ---
RN NOTES: PT BLOOD SUGAR 150. 2 UNITS OF REGULAR INSULIN GIVEN PER SLIDING SCALE. NO S/S OF HYPER/HYPOGLYCEMIA. WILL CONTINUE TO MONITOR
--- NOTE | 2021-07-25 22:40 | NUR ---
RN NOTES: PT BLOOD SUGAR 150. 2 UNITS OF REGULAR INSULIN GIVEN PER SLIDING SCALE. NO S/S OF HYPER/HYPOGLYCEMIA. WILL CONTINUE TO MONITOR
[2021-07-26 04:00] VITALS: BP 125/66
[2021-07-26] MEDS: ACETAMINOPHEN 325 MG TABLET PO PRN (06:29)
--- NOTE | 2021-07-26 06:35 | NUR ---
RN CLOSING NOTES; PATIENT IN BED ALERT, ORIENTED X4 AND VERBALLY RESPONSIVE. SITTING POSITION. ON ROOM AIR, O2 SAT 96%. NO SOB, BREATHING EVEN AND UNLABORED. IV ACCESS ON LAC#20G INTACT AND PATENT. NO S/S OF INFILTRATIONS. TYLENOL 325 MG 2 TABS GIVEN FOR 100.1 INCREASE TEMP AND PT TOLERATED WELL. NO C/O PAIN OR DISCOMFORT. NO ACUTE DISTRESS. ALL SAFETY MEASURES IN PLACE. BED IN LOW POSITION AND LOCKED. BOTH SIDE RAILS UP. PLACE CALL LIGHT WITH IN REACH. WILL ENDORSE TO MORNING SHIFT NURSE.
--- NOTE | 2021-07-26 06:38 | NUR ---
RN NOTES: ALL MEDICATIONS GIVEN ORDERED AND PT TOLERATED WELL.
--- NOTE | 2021-07-26 06:38 | NUR ---
RN NOTES: ALL MEDICATIONS GIVEN ORDERED AND PT TOLERATED WELL.
[2021-07-26] MEDS: BLOOD SUGAR DIAGNOSTIC 1 EACH STRIP IN SCH ×2 (07:51→12:19)
[2021-07-26] MEDS: INSULIN REGULAR, HUMAN 100 UNIT/ML 3 ML VIAL SQ PRN (07:53)
[2021-07-26 08:00] VITALS: BP 125/60
[2021-07-26] MEDS: LOSARTAN POTASSIUM 50 MG TABLET PO SCH (08:44)
[2021-07-26] MEDS: METFORMIN 500 MG TABLET PO SCH (08:44)
[2021-07-26] MEDS: DOCUSATE SODIUM 100 MG CAPSULE PO SCH (08:44)
[2021-07-26] MEDS: FAMOTIDINE (20 MG) 20 MG TABLET PO SCH (08:44)
[2021-07-26] MEDS: AMLODIPINE BESYLATE 10 MG TABLET PO SCH (08:45)
[2021-07-26 10:00] VITALS: BP 125/60
[2021-07-26] MEDS: HYDROCHLOROTHIAZIDE 25 MG TABLET PO SCH (10:00)
--- NOTE | 2021-07-26 10:20 | NUR ---
RN NOTES SPOKE W/ PATIENT'S NIECE ALEXSANDER ([phone]) AND INFORMED ABOUT PATIENT'S CONDITION; PER ALEXSANDER, SHE CAN BE POC FOR PATIENT OTHER FAMILY MEMBERS DON'T SPEAK BENINESE.
--- NOTE | 2021-07-26 10:20 | NUR ---
RN NOTES SPOKE W/ PATIENT'S NIECE ALEXSANDER ([phone]) AND INFORMED ABOUT PATIENT'S CONDITION; PER ALEXSANDER, SHE CAN BE POC FOR PATIENT OTHER FAMILY MEMBERS DON'T SPEAK [place]LAND[place].
--- NOTE | 2021-07-26 11:10 | NUR ---
RN NOTES RECEIVED CALL FROM MANAGER MOLECULAR EDIN, PER CM, PATIENT WILL GO TO [facility] W/ PICKUP TIME OF 1400. NO NEED FOR REPEAT COVID TEST. DEVI BELTRE, AWARE.
--- NOTE | 2021-07-26 11:10 | NUR ---
RN NOTES RECEIVED CALL FROM TRAVEL REGISTERED NURSE NICU EDIN, PER CM, PATIENT WILL GO TO [facility] W/ PICKUP TIME OF 1400. NO NEED FOR REPEAT COVID TEST. DEVI BELTRE, AWARE.
--- NOTE | 2021-07-26 12:46 | NUR ---
RN NOTES PATIENT REPORT GIVEN TO BREN, CUSTOM SHOE DESIGNER AND MAKER; DISCHARGE INSTRUCTION AND EDUCATION GIVEN TO DISPLAY FABRICATOR. INFORMED ABOUT TRIPLICATE ORDER FOR ANALGESIA.
--- NOTE | 2021-07-26 12:46 | NUR ---
RN NOTES PATIENT REPORT GIVEN TO BREN, CONTACT LENS INSPECTOR; DISCHARGE INSTRUCTION AND EDUCATION GIVEN TO TALENT ACQUISITION PARTNER. INFORMED ABOUT TRIPLICATE ORDER FOR ANALGESIA.
--- NOTE | 2021-07-26 14:31 | NUR ---
RN NOTES PATIENT PICKED UP BY [address]SF[address] [facility]. BEDSIDE ENDORSEMENT DONE. IV LINE REMOVED, NO BLEEDING NOTED. DISCHARGE FORM AND BELONGINGS LIST FORM SIGNED BY PATIENT AND ALL BELONGINGS ACCOUNTED FOR. NAME ARMBAND KEPT FOR IDENTIFICATION PURPOSES. CHARGE NURSE AND MD AWARE OF DISCHARGE.
--- NOTE | 2021-07-26 14:31 | NUR ---
RN NOTES PATIENT PICKED UP BY 2 EMT FOR TRANSFER TO [facility]. BEDSIDE ENDORSEMENT DONE. IV LINE REMOVED, NO BLEEDING NOTED. DISCHARGE FORM AND BELONGINGS LIST FORM SIGNED BY PATIENT AND ALL BELONGINGS ACCOUNTED FOR. NAME ARMBAND KEPT FOR IDENTIFICATION PURPOSES. CHARGE NURSE AND MD AWARE OF DISCHARGE.
[2021-08-05] MEDS ORDERED: ASPIRIN 325 MG TABLET PO SCH (09:00)
== END 2021-07-26 14:00 | DRG 469 ==
LOC: DS 05:28 → MED 05:30 → MEDSG2 07-25 18:04
PROVIDERS: ADMIT Nurse Practitioner Acute Care; ATTEND Internal Medicine
PROC: 0SRD0J9 Replacement of Left Knee Joint with Synthetic Substitute, Cemented, Open Approach (ICD-10-PCS; principal; 2021-07-21)
DX: M17.12 Unilateral primary osteoarthritis, left knee (principal); U07.1 COVID-19; I10 Essential (primary) hypertension; E11.9 Type 2 diabetes mellitus without complications; E66.9 Obesity, unspecified; Z68.32 Body mass index [BMI] 32.0-32.9, adult; E78.5 Hyperlipidemia, unspecified; Z86.718 Personal history of other venous thrombosis and embolism; K59.00 Constipation, unspecified; Z79.84 Long term (current) use of oral hypoglycemic drugs
CPT/HCPCS: 36415; 80048-TC; 82962-TC; 83735-TC; 84100-TC; 85025-TC; 87081-TC; 88305-TC; 88311-TC; 97110-TC; 97116-TC; 97530-TC; 97760-TC; A4217; C1713; C1776; G0378; J0330; J0690; J1100; J1170; J1815; J1885; J2405; J2704; J3010; J3475; J3490; J7030; J7060; L1830; U0003

== ENCOUNTER 2021-09-13 10:01 | Outpatient (CLI) | payer MEDICARE ==
[~2021-09-13 10:01] MED LIST: AMLO-213 PO; ATOR40TA PO; HYDR25TA4 PO; LOSA100T31 PO; METF-442 PO; RIVA10TA PO
== END 2021-09-13 23:59 | disposition home or self-care (01) ==
LOC: MSC 10:01
PROVIDERS: ATTEND Internal Medicine
DX: Z09 Encounter for follow-up examination after completed treatment for conditions other than malignant neoplasm (principal); I10 Essential (primary) hypertension; E11.9 Type 2 diabetes mellitus without complications; Z79.84 Long term (current) use of oral hypoglycemic drugs; I82.509 Chronic embolism and thrombosis of unspecified deep veins of unspecified lower extremity; Z79.01 Long term (current) use of anticoagulants; E78.5 Hyperlipidemia, unspecified; M17.10 Unilateral primary osteoarthritis, unspecified knee

== ENCOUNTER 2021-10-20 09:55 | Outpatient (CLI) | payer MEDICARE, OTHER ==
[2021-10-20 11:17] LABS: BASOPHILS % (AUTO) 0.4 % (0.0-2.0); EOSINOPHILS % (AUTO) 1.3 % (0.0-6.0); HEMATOCRIT 34 % (33-45); HEMOGLOBIN 11.2 g/dL (11.5-14.8); LYMPHOCYTES # (AUTO) 1.8 K/uL (0.8-4.8); LYMPHOCYTES % (AUTO) 29.6 % (20.0-44.0); MEAN CORPUSCULAR HGB CONC 33 g/dl (31.0-36.0); MEAN CORPUSCULAR VOLUME 88 fL (82-100); MONOCYTES # (AUTO) 0.4 K/uL (0.1-1.30); MONOCYTES % (AUTO) 6.5 % (2.0-12.0); NEUTROPHILS # (AUTO) 3.8 K/uL (1.8-8.9); NEUTROPHILS % (AUTO) 62.2 % (43.0-81.0); PLATELET COUNT (AUTO) 328 K/uL (150-450); RED BLOOD CELL COUNT(AUTO) 3.82 MIL/uL (4.0-5.2); WHITE BLOOD COUNT (AUTO) 6.1 K/uL (4.3-11.0)
[2021-10-20 11:39] LABS: BILIRUBIN,URINE NEGATIVE (NEGATIVE); COLOR,URINE YELLOW (YELLOW); LEUKOCYTE ESTERASE ,URINE TRACE (NEGATIVE); NITRITE, URINE NEGATIVE (NEGATIVE); PROTEIN,URINE NEGATIVE (NEGATIVE); UGLUCOSE NEGATIVE (NEGATIVE); UROBILINOGEN,URINE 0.2 EU/dL (0.2)
[2021-10-20 11:59] LABS: ALBUMIN 3.6 g/dL (3.4-5.0); BILIRUBIN,DIRECT 0.1 mg/dL (0.0-0.2); BILIRUBIN,TOTAL 0.3 mg/dL (0.2-1.0); CALCIUM, SERUM 9.8 mg/dL (8.5-10.1); CREATININE 0.8 mg/dL (0.6-1.3); POTASSIUM 4.3 mmol/L (3.5-5.1); TOTAL PROTEIN, SERUM 7.6 g/dL (6.4-8.2)
[2021-10-20 12:05] LABS: FREE T4 (FREE THYROXINE) 1.13 ng/dL (0.76-1.46); THYROID STIMULATING HORMONE 2.887 uIU/mL (0.358-3.74)
[2021-10-20 12:10] LABS: BACTERIA,URINE RARE /HPF (None Seen); RBC,URINE 0-2 /HPF (0-2); WBC,URINE 0-3 /HPF (0-3)
[2021-10-20 12:11] LABS: CALCIUM CARBONATE CRYSTALS,UR None Seen /HPF (None Seen); CALCIUM OXALATE CRYSTALS,UR None Seen /HPF (None Seen); CALCIUM PHOSPHATE CRYSTALS,UR None Seen /HPF (None Seen); COARSE GRANULAR CASTS,URINE None Seen /LPF (None Seen); CYSTINE CRYSTALS,URINE None Seen /HPF (None Seen); FATTY CASTS,URINE None Seen /LPF (None Seen); FINE GRANULAR CASTS,URINE None Seen /LPF (None Seen); HYALINE CASTS, URINE None Seen /LPF (None Seen); MUCUS,URINE None Seen /LPF (None Seen); OTHER CRYSTALS,URINE None Seen /HPF (None Seen); RED BLOOD CELL CASTS,URINE None Seen /LPF (None Seen); SPERM,URINE None Seen /HPF (None Seen); SQUAMOUS EPITHELIAL CELL,UR None Seen /HPF (None Seen); TRICHOMONAS,URINE None Seen /HPF (None Seen); TRIPLE PHOSPHATE CRYSTAL,UR None Seen /HPF (None Seen); TYROSINE CRYSTAL,URINE None seen /HPF (None Seen); URIC ACID CRYSTALS,URINE None Seen /HPF (None Seen); URINE AMORPHOUS PHOSPHATES None Seen /HPF (None Seen); URINE AMORPHOUS URATE None Seen /HPF (None Seen); WAXY CASTS,URINE None Seen /LPF (None Seen); YEAST,URINE None Seen /HPF (None Seen)
== END 2021-10-20 23:59 | disposition home or self-care (01) ==
LOC: MSC 09:55
PROVIDERS: ATTEND Internal Medicine
DX: E11.9 Type 2 diabetes mellitus without complications (principal); Z79.84 Long term (current) use of oral hypoglycemic drugs; Z96.659 Presence of unspecified artificial knee joint; I10 Essential (primary) hypertension; I82.409 Acute embolism and thrombosis of unspecified deep veins of unspecified lower extremity; Z79.01 Long term (current) use of anticoagulants; E78.5 Hyperlipidemia, unspecified; Z79.899 Other long term (current) drug therapy
CPT/HCPCS: 36415; 80053; 80076; 81001; 83036; 84439; 84443; 85025; G0463

== ENCOUNTER → 2022-11-22 | Outpatient (CLI) | payer MEDICARE, OTHER ==
[2022-11-23 09:44] LABS: BASOPHILS # (AUTO) 0.1 K/uL (0.0-0.2); EOSINOPHILS % (AUTO) 4.4 % (0.0-6.0); HEMATOCRIT 36 % (33-45); HEMOGLOBIN 11.9 g/dL (11.5-14.8); LYMPHOCYTES # (AUTO) 2.3 K/uL (0.8-4.8); LYMPHOCYTES % (AUTO) 38.5 % (20.0-44.0); MEAN CORPUSCULAR HGB CONC 33 g/dl (31.0-36.0); MEAN CORPUSCULAR VOLUME 92 fL (82-100); MONOCYTES # (AUTO) 0.5 K/uL (0.1-1.30); MONOCYTES % (AUTO) 7.8 % (2.0-12.0); NEUTROPHILS # (AUTO) 2.9 K/uL (1.8-8.9); NEUTROPHILS % (AUTO) 48.3 % (43.0-81.0); PLATELET COUNT (AUTO) 285 K/uL (150-450); RED BLOOD CELL COUNT(AUTO) 3.86 MIL/uL (4.0-5.2)
[2022-11-23 10:05] LABS: ALBUMIN 3.6 g/dL (3.4-5.0); BILIRUBIN,DIRECT 0.1 mg/dL (0.0-0.2); BILIRUBIN,TOTAL 0.2 mg/dL (0.2-1.0); CALCIUM, SERUM 9.8 mg/dL (8.5-10.1); CREATININE 0.8 mg/dL (0.6-1.3); POTASSIUM 4.6 mmol/L (3.5-5.1); TOTAL PROTEIN, SERUM 7.3 g/dL (6.4-8.2)
[2022-11-23 10:12] LABS: THYROID STIMULATING HORMONE 3.852 uIU/mL (0.358-3.74)
== END | disposition home or self-care (01) ==
LOC: MSC 10:34
PROVIDERS: ATTEND Internal Medicine
DX: E11.69 Type 2 diabetes mellitus with other specified complication (principal); Z79.84 Long term (current) use of oral hypoglycemic drugs; Z96.659 Presence of unspecified artificial knee joint; Z86.39 Personal history of other endocrine, nutritional and metabolic disease; I10 Essential (primary) hypertension; I82.409 Acute embolism and thrombosis of unspecified deep veins of unspecified lower extremity; E78.5 Hyperlipidemia, unspecified; Z79.899 Other long term (current) drug therapy
CPT/HCPCS: 36415; 80048-TC; 80061-TC; 80076-TC; 82728-TC; 83540-TC; 84439-TC; 84443-TC; 85025-TC

== ENCOUNTER 2022-11-23 08:35 | Outpatient (CLI) | payer MEDICARE, OTHER | END 2022-11-23 23:59 | disposition home or self-care (01) | LOC: LAB 08:35 | PROVIDERS: ATTEND Internal Medicine | DX: Z00.00 Encounter for general adult medical examination without abnormal findings (principal); E11.9 Type 2 diabetes mellitus without complications | CPT/HCPCS: 36415; 80048-TC; 80061-TC; 80076-TC; 82728-TC; 83540-TC; 84439-TC; 84443-TC; 85025-TC ==